=== PATIENT | female | born 1995 | race Caucasian/White ===

== ENCOUNTER 2017-04-03 17:56 | Emergency (ER) | payer OTHER ==
[2017-04-03 18:40] LABS: BILIRUBIN NEGATIVE (NEGATIVE); BLOOD NEGATIVE Ery/uL (NEGATIVE); COLOR YELLOW (YELLOW); GLUCOSE (U) NORMAL (NORMAL); KETONE (U) NEGATIVE (NEGATIVE); LEUKOCYTES TRACE Leu/uL (NEGATIVE); NITRITE NEGATIVE (NEGATIVE); PROTEIN NEGATIVE (NEGATIVE); UROBILINOGEN 0.2 mg/dL (0.2-1.0); pH 6.5 (5.0-9.0)
[2017-04-03 18:45] LABS: BACTERIA TRACE; CLARITY SLIGHTLY HAZY (CLEAR); SQUAMOUS EPITHELIAL CELLS 20-50; URINARY RBC RARE
[2017-04-03 19:08] LABS: BASOPHIL 0.3 % (0-2); EOSINOPHIL 1.3 % (0-5); HCT 34.8 % (37.0-47.0); HGB 12.7 g/dl (12.5-16.0); MCH 32.1 pg (25.0-31.0); MCHC 36.5 g/dL (32.0-36.0); MCV 87.9 fL (78.0-100.0); MONOCYTE 8.2 % (0-12); MPV 10.2 fL (6.0-9.5); NEUTROPHIL 61.2 % (41-80); PLT 237 K/uL (150-400); RBC 3.96 M/uL (4.20-5.40); RDW 12.9 % (11.5-14.0); WBC 9.5 K/uL (4.0-10.5)
[2017-04-03 19:24] LABS: ALBUMIN 3.6 g/dL (3.5-5.0); BILIRUBIN - TOTAL 0.3 mg/dL (0.1-1.0); CREATININE 0.6 mg/dL (0.5-1.0); GLOBULIN (CALCULATION) 2.1 g/dL (2.2-4.2); POTASSIUM 3.8 mmol/L (3.5-5.1); TOTAL PROTEIN 5.7 g/dL (6.4-8.3)
[2017-04-03 19:25] LABS: LACTIC ACID 1.4 mmol/L (0.5-2.2)
== END 2017-04-03 20:45 | disposition left against medical advice (07) ==
LOC: FER 17:56
PROVIDERS: Nurse Practitioner
DX: O23.591 Infection of other part of genital tract in pregnancy, first trimester (principal); N76.0 Acute vaginitis; B96.89 Other specified bacterial agents as the cause of diseases classified elsewhere; Z3A.01 Less than 8 weeks gestation of pregnancy
CPT/HCPCS: 36415; 76817; 80053; 81001; 83605; 84702; 84703; 85025; 87210

== ENCOUNTER 2021-05-25 01:18 | Emergency (ER) | payer OTHER ==
[~2021-05-25 01:18] MED LIST: MOTRIN600 MG PO
[2021-05-25 02:12] LABS: BASOPHIL 0.3 % (0-2); EOSINOPHIL 0.6 % (0-5); HCT 25.2 % (37.0-47.0); HGB 7.8 g/dl (12.5-16.0); LYMPHOCYTE 11.9 % (15-48); MCH 27.3 pg (25.0-31.0); MCV 88.1 fL (78.0-100.0); MPV 9.9 fL (6.0-9.5); NEUTROPHIL 80.6 % (41-80); NRBC 0; PLT 397 K/uL (150-400); RBC 2.86 M/uL (4.20-5.40); RDW 15.1 % (11.5-14.0); WBC 12.7 K/uL (4.0-10.5)
[2021-05-25 02:29] LABS: ALBUMIN 2.7 g/dL (3.4-5.0); BILIRUBIN - TOTAL 0.2 mg/dL (0.2-1.0); BUN/CREAT RATIO (CALC) 23.5 RATIO; CREATININE 0.68 mg/dL (0.51-0.95); GLOBULIN (CALCULATION) 4.2 g/dL; POTASSIUM 3.6 mmol/L (3.5-5.1); TOTAL PROTEIN 6.9 g/dL (6.4-8.2)
[2021-05-25] MEDS ORDERED: LAXATIVE SUPPOS10 MG PR (06:22)
[2021-05-25] MEDS ORDERED: CITRATE OF MAG296 ML PO (06:22)
[2021-05-25] MEDS ORDERED: FEOSOL325 MG PO (06:22)
== END 2021-05-25 06:48 | disposition home or self-care (01) ==
LOC: FER 01:18
PROVIDERS: Emergency Medicine
DX: K59.00 Constipation, unspecified (principal); D64.9 Anemia, unspecified; N83.201 Unspecified ovarian cyst, right side; F17.210 Nicotine dependence, cigarettes, uncomplicated; Z90.49 Acquired absence of other specified parts of digestive tract
CPT/HCPCS: 36415; 80053; 83690; 84703; 85025; J1885; J2270; J2405; Q9967